=== PATIENT | male | born 1960 | race Caucasian/White ===

== ENCOUNTER 2018-12-02 06:24 | Day surgery (SDC) | payer BC ==
[~2018-12-02 06:24] MED LIST: Lactated Ringers 1,000 ML IV SCH; ceFAZolin 2 GM in Premix Bag 1 BAG IV ONE
[2018-12-02] MEDS ORDERED: Propofol 200 MG/20 ML SDV ONE (06:55)
[2018-12-02] MEDS ORDERED: Ondansetron 4 MG/2 ML SDV ONE (06:55)
[2018-12-02] MEDS ORDERED: fentaNYL 250 MCG/5 ML SDV ONE (06:55)
[2018-12-02] MEDS ORDERED: Midazolam 1 MG/ML 2 ML SDV ONE (06:55)
[2018-12-02] MEDS ORDERED: Lidocaine 2% 5 ML SDV ONE (06:55)
--- NOTE | 2018-12-02 07:02 | PCM.PREANE ---
Preanesthetic Assessment - Anesthesia/Transfusion/Family Hx Anesthesia History: Prior Anesthesia Without Reaction Family History of Anesthesia Reaction: No Transfusion History: No Prior Transfusion(s) Intubation History: Unknown - Review of Systems General: No Symptoms Pulmonary: No Symptoms Cardiovascular: No Symptoms Gastrointestinal: No Symptoms Neurological: No Symptoms Other: Reports: None - Physical Assessment Height: 5 ft 8 in Weight: 74.843 kg ASA Class: 2 Mental Status: Alert & Oriented x3 Airway Class: Mallampati = 2 Dentition: Reports: Normal Dentition, Bridge (fixed rt. upper (back) and left lower (back)) Thyro-Mental Finger Breadths: 3 Mouth Opening Finger Breadths: 3 ROM/Head Extension: Limited/Partial Lungs: Clear to Auscultation, Normal Respiratory Effort Cardiovascular: Regular Rate, Regular Rhythm - Allergies Allergies/Adverse Reactions: Allergies Allergy/AdvReac Type Severity Reaction Status Date / Time No Known Allergies Allergy Verified 11/25/18 16:07 - Blood Blood Available: No - Anesthesia Plan Pre-Op Medication Ordered: None - Acknowledgements Anesthesia Type Planned: General Anesthesia Pt an Appropriate Candidate for the Planned Anesthesia: Yes Alternatives and Risks of Anesthesia Discussed w Pt/Guardian: Yes Pt/Guardian Understands and Agrees with Anesthesia Plan: Yes PreAnesthesia Questionnaire HEENT History: Reports: Other (See Below) Other HEENT History: reading glasses Cardiovascular History: Reports: None Respiratory History: Reports: None Gastrointestinal History: Reports: None Genitourinary History: Reports: None Musculoskeletal History: Reports: Arthritis Neurological History: Reports: None Psychiatric History: Reports: None Endocrine/Metabolic History: Reports: None Hematologic History: Reports: None Immunologic History: Reports: None Oncologic (Cancer) History: Reports: None Dermatologic History: Reports: None - Past Surgical History Head Surgeries/Procedures: Reports: None Other HEENT Surgeries/Procedures: hx of left ear surgery (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) Cardiovascular Surgical History: Reports: None Respiratory Surgical History: Reports: None GI Surgical History: Reports: Appendectomy Male Surgical History: Reports: None Endocrine Surgical History: Reports: None Neurological Surgical History: Reports: None Musculoskeletal Surgical History: Reports: None Oncologic Surgical History: Reports: None Dermatological Surgical History: Reports: None - SUBSTANCE USE Smoking Status *Q: Former Smoker (didn't smoke for last 4 days (trying with nicotine patches)) Tobacco Use Within Last Twelve Months: Cigarettes Recreational Drug Use History: No - HOME MEDS Home Medications: Home Meds . [No Known Home Meds] 11/25/18 [History] - CURRENT (IN HOUSE) MEDS Current Meds: Current Medications Lactated Ringer's (Ringers, Lactated) 1,000 mls @ 125 mls/hr IV ASDIRECTED MICKEY Discontinued Medications Fentanyl (Sublimaze) Confirm Administered Dose 250 mcg .ROUTE .STK-MED ONE Stop: 12/02/18 06:56 Cefazolin Sodium/Dextrose 2 gm (/ Premix) 50 mls @ 100 mls/hr IV ONETIME ONE Stop: 12/02/18 05:29 Lidocaine (Xylocaine-Mpf 2%) Confirm Administered Dose 5 ml .ROUTE .STK-MED ONE Stop: 12/02/18 06:56 Midazolam HCl (Versed 1 Mg/Ml) Confirm Administered Dose 2 mg .ROUTE .STK-MED ONE Stop: 12/02/18 06:56 Ondansetron HCl (Zofran) Confirm Administered Dose 4 mg .ROUTE .STK-MED ONE Stop: 12/02/18 06:56 Propofol (Diprivan 20 Ml) Confirm Administered Dose 200 mg .ROUTE .STK-MED ONE Stop: 12/02/18 06:56
[2018-12-02] MEDS ORDERED: Bupivacaine 25%/EPINEPHrine/PF 30 ML ONE (07:28)
[2018-12-02] MEDS ORDERED: Lidocaine 1% with EPINEPHrine 1:100,000 20 ML MDV ONE (07:28)
[2018-12-02] MEDS ORDERED: Acetaminophen/oxyCODONE 325-5 MG Tab PO PRN (07:43)
[2018-12-02] MEDS ORDERED: Sodium Chloride 0.9% 20 ML ONE (07:53)
[2018-12-02] MEDS ORDERED: ceFAZolin 1 GM Vial ONE (07:53)
[2018-12-02] MEDS ORDERED: ePHEDrine 50 MG/ML SDV ONE (08:03)
[2018-12-02] MEDS ORDERED: fentaNYL 100 MCG/2 ML SDV IVPUSH PRN ×2 (08:16→10:52)
[2018-12-02] MEDS ORDERED: Naloxone 0.4 MG/ML Syringe IVPUSH PRN (08:16)
[2018-12-02] MEDS ORDERED: 50% Dextrose in Water 50 ML Syringe IVPUSH PRN (08:16)
[2018-12-02] MEDS ORDERED: Atropine 0.1 MG/ML 10 ML Syringe IVPUSH PRN ×2 (08:16)
[2018-12-02] MEDS ORDERED: EPINEPHrine 1:10,000 1 MG/10 ML Syringe IVPUSH PRN (08:16)
[2018-12-02] MEDS ORDERED: Albuterol 0.083% 2.5 MG/3 ML Neb Soln NEB PRN (08:16)
[2018-12-02] MEDS ORDERED: Ketorolac 30 MG/ML SDV IVPUSH ONE (10:05)
--- NOTE | 2018-12-02 10:06 | PCM.POSTAN ---
POST ANESTHESIA ASSESSMENT - MENTAL STATUS Mental Status: Alert, Oriented - VITAL SIGNS Pulse Rate: 89 SaO2: 95 (RA) Resp Rate: 14 Blood Pressure: 108/57 - RESPIRATORY Respiratory Status: Respiratory Rate WNL, Airway Patent, O2 Saturation Stable - CARDIOVASCULAR CV Status: Pulse Rate WNL, Blood Pressure Stable - GASTROINTESTINAL GI Status: No Symptoms - PAIN Pain Score: 2 - POST OP HYDRATION Hydration Status: Adequate & Stable
--- NOTE | 2018-12-02 10:16 | PCM.OPNOTE ---
- General Post-Op/Procedure Note Date of Surgery/Procedure: 12/02/18 Operative Procedure(s): ing hernia rep w mesh, L Findings: mod size direct and indirect ing hernia L, indirect hernia open and amputated, and a small plug placed in indirect hernia; [id number] Pre Op Diagnosis: ing hernia on L Post-Op Diagnosis: Same Anesthesia Technique: General ET Tube Primary Surgeon: Ramsey Panchal Pathology: sent Complications: None Condition: Good Free Text/Narrative:: Intake & Output 12/01/18 12/02/18 12/02/18 22:59 06:59 14:59 Output Total 100 Balance -100
--- NOTE | 2018-12-02 11:40 | OR ---
SURGEON: Ramsey Panchal MD DATE OF PROCEDURE: 12/02/2018 PREOPERATIVE DIAGNOSIS: Inguinal hernia on the left. POSTOPERATIVE DIAGNOSIS: Inguinal hernia on the left. PROCEDURE PERFORMED: Inguinal hernia repair with mesh, small size plug. PRIMARY SURGEON: Ramsey Panchal MD. COMPLICATIONS: None. FINDINGS: The patient has a pantaloon hernia, has a moderate size of a direct hernia, has a moderate size of indirect hernia. PROCEDURE IN DETAIL: The patient was taken to the operating room and placed in the supine position. Upon induction of general endotracheal anesthesia, the patient's groin and inguinal area were prepped and draped in a sterile fashion. The scrotum was placed on top of the drape in case it needed to be maneuvered. An IV antibiotic was given prophylactically and after assessment of appropriate landmark, a transverse skin incision was made two fingers above the inguinal crease. This was then carefully taken down past the Melissa fascia and exposed the external oblique where the cord is. A small avis was made right on top of the cord and then using a Metzenbaum scissors, carefully opened up the fiber along its direction all the way to the external ring. The spermatic cord was then carefully lifted up from the inguinal canal. A Norton drain was then used to hold on to manipulate the cord and carefully dissect out from the inguinal floor. The cremasteric muscle was then opened up. Careful examined of the cord, dissected down the cremasteric muscle, a large glistening whitish hernia sac in the medial anterior aspect of the floor, next to the cord, was located. The vas was identified and pushed aside to avoid damage. This was carefully dissected down all the way to the internal ring. Pt also has a medium size direct hernia, so pt has indirect and direct hernia; The hernia sac was open up to examine if there was any hernia content; using a 2-0 silk, a purse string was placed to close the sac and the redundant part of the sac was amputated. A small plug was inserted into the hernia stump and followed with a mesh to reinforce the inguinal floor. The mesh was then anchored down by using 2-0 Prolene stitches to the periosteum of the pubic symphysis, then running down to the lateral aspect of the rectus muscle. The lateral part of the mesh was then anchored to the Silvio ligament, again using 2-0 Prolene. The last few stitches also anchored the plug to make sure the plug is not migrating. Where the cord exits out, a stitch was placed in the two tails to repair the internal ring. Upon conclusion of surgery, I used a finger to make sure the ring is not too tight and not too loose, followed with some irrigation. The external oblique was then repaired by use of 2-0 Vicryl and the recreation external ring was also tested, not too tight, not too loose, followed with 2-0 Vicryl and closed the Melissa fascia and the skin stapled to approximate the skin, followed by appropriate dressing. The patient was then awakened, extubated and transferred to recovery room in a hemodynamically stable condition. The patient tolerated the procedure well. Intraoperative findings as dictated above. Dr. Panchal was present through the whole procedure. Just before surgery, a timeout was called. The patient was identified and procedure identified and procedure started. As always, thank you for the kind referral. ABIODUN / DELROY /[id number] MTDDario
--- NOTE | 2018-12-02 12:10 | PCM48HPAN ---
Post Anesthesia Note - EVALUATION WITHIN 48HRS OF ANESTHETIC Vital Signs in Normal Range: Yes Patient Participated in Evaluation: Yes Respiratory Function Stable: Yes Airway Patent: Yes Cardiovascular Function Stable: Yes Hydration Status Stable: Yes Pain Control Satisfactory: Yes Nausea and Vomiting Control Satisfactory: Yes Mental Status Recovered: Yes Pulse Rate: 89 Resp Rate: 16 Blood Pressure: 108/57 - COMMENTS/OBSERVATIONS Free Text/Narrative:: no anesthesia problems
== END 2018-12-02 12:30 | disposition home or self-care (01) ==
LOC: MW.SDS 06:24
PROVIDERS: ATTEND Surgery
DX: K40.90 Unilateral inguinal hernia, without obstruction or gangrene, not specified as recurrent (principal); R31.9 Hematuria, unspecified; F17.210 Nicotine dependence, cigarettes, uncomplicated
CPT/HCPCS: 00830; 88302; C1781; J0690; J1885; J2001; J2250; J2405; J2704; J3010; J7120